=== PATIENT | female | born 1990 | race African-American/Black ===

== ENCOUNTER 2017-07-20 14:13 | Emergency (ER) | payer SELFPAY ==
[~2017-07-20] VITALS: Ht 154.9 cm; Wt 78.0 kg
[2017-07-20] MEDS ORDERED: SODIUM CHLORIDE 0.9% 1,000 ML IV ONE (19:51)
[2017-07-20] MEDS ORDERED: KETOROLAC 30MG/ML VIAL IV STA (19:51)
[2017-07-20 20:49] LABS: CLARITY URINE CLEAR (CLEAR); COLOR URINE YELLOW (YELLOW); KETONES URINE NEGATIVE (NEGATIVE); LEUKOCYTE ESTERASE URINE NEGATIVE (NEGATIVE); NITRITE URINE NEGATIVE (NEGATIVE); OCCULT BLOOD URINE NEGATIVE (NEGATIVE); PROTEIN URINE NEGATIVE (NEGATIVE); SPECIFIC GRAVITY URINE 1.021 (1.005-1.030); UROBILINOGEN URINE 0.2 E.U./dL (0.2-1.0)
[2017-07-20 21:56] LABS: BASOPHILS % 0.8 % (0.0-2.0); EOSINOPHILS % 2.8 % (0.0-5.0); HEMATOCRIT. 37.4 % (36.0-48.0); HEMOGLOBIN. 12.5 g/dL (12.0-16.0); LYMPHOCYTES % 42.4 % (20.0-50.0); MEAN CORPUSCULAR HEMOGLOBIN 29.4 pg (28.0-32.0); MEAN CORPUSCULAR VOLUME 87.8 fL (81.0-99.0); MEAN PLATELET VOLUME 7.9 fl (7.4-10.4); MONOCYTES % 7.7 % (2.0-8.0); NEUTROPHILS % 46.3 % (40.0-76.0); PLATELET 237 x1000/uL (130-400); RED BLOOD CELL COUNT 4.26 mill/uL (4.2-5.4); RED CELL DISTRIBUTION WIDTH 13.9 % (11.6-14.6)
[2017-07-20 22:00] LABS: PROTHROMBIN TIME 10.9 sec (9.4-11.6)
[2017-07-20 22:07] LABS: CHLORIDE 106 mEq/L (98-107)
[2017-07-20 22:16] LABS: CARBON DIOXIDE 27 mEq/L (21-32)
[2017-07-20 23:29] VITALS: BP 116/73
== END 2017-07-20 23:46 | disposition home or self-care (01) ==
LOC: ER 15:47
DX: S16.1XXA Strain of muscle, fascia and tendon at neck level, initial encounter (principal); M79.1 Myalgia; V43.52XA Car driver injured in collision with other type car in traffic accident, initial encounter; Y93.89 Activity, other specified; Y92.488 Other paved roadways as the place of occurrence of the external cause
CPT/HCPCS: 36415; 71010; 72125; 72170; 80053; 81003; 83690; 85025; 85610; 85730; 96361; 96374; 99285; J1885; J7030; Z7610